=== PATIENT | female | born 1970 | race Caucasian/White ===

== ENCOUNTER 2016-11-09 17:00 | Emergency (ER) | payer OTHER ==
[2016-11-09 17:08] VITALS: BP 124/83
--- NOTE | 2016-11-09 17:33 | UC ---
Skin Complaint HPI - HPI Summary HPI Summary: Found small black speck on R thigh this evening after shower, thinks it is a tick. [place] and walked through some tall grass. About 1 week ago pulled large tick (does not think it was engorged) from the middle of her back; worried about the discolored spot. - History of Current Complaint Chief Complaint: [facility] Time Seen by Provider: 11/09/16 17:06 Stated Complaint: TICK Hx Obtained From: Patient Hx Last Menstrual Period: 1 WEEK AGO ?: No Onset/Duration: Sudden Onset Timing: Constant Onset Severity: Mild Current Severity: Mild Location: Discrete Aggravating: Nothing Alleviating: Nothing Associated Signs & Symptoms: Positive: Negative Related History: Insect Bite/Sting - Allergy/Home Medications Allergies/Adverse Reactions: Allergies Allergy/AdvReac Type Severity Reaction Status Date / Time PTU Allergy Severe Hives Uncoded 11/09/16 17:08 Home Medications: Home Medications Cyanocobalamin TAB* [Vitamin B12 TAB*] EVERY OTHER DAY 11/09/16 [History] Folic Acid TAB* [Folvite TAB*] 1 mg PO EVERY OTHER DAY 11/09/16 [History Confirmed 11/09/16] Levothyroxine TAB* [Synthroid TAB*] 100 mcg PO DAILY 11/09/16 [History Confirmed 11/09/16] Review of Systems Constitutional: Negative Skin: Other - spot on R thigh, itchy area on back Eyes: Negative ENT: Negative Respiratory: Negative Cardiovascular: Negative Gastrointestinal: Negative Genitourinary: Negative Motor: Negative Neurovascular: Negative Musculoskeletal: Negative Neurological: Negative Psychological: Negative All Other Systems Reviewed And Are Negative: Yes PMH/Surg Hx/FS Hx/Imm Hx Endocrine History: Thyroid Disease - Surgical History Surgical History: Yes Surgery Procedure, Year, and Place: THYROIDECTOMY 1999 - Family History Known Family History: Negative: Blood Disorder - Social History Lives: With Family Alcohol Use: None Substance Use Type: None Smoking Status (MU): Never Smoked Tobacco Physical Exam Triage Information Reviewed: Yes Appearance: Well-Appearing, No Pain Distress, Well-Nourished Vital Signs: Initial Vital Signs Temp 97.8 F 11/09/16 17:05 Pulse 53 11/09/16 17:05 Resp 16 11/09/16 17:05 BP 124/83 11/09/16 17:05 Pulse Ox 100 11/09/16 17:05 Vital Signs Reviewed: Yes Eye Exam: Normal Eyes: Positive: Conjunctiva Clear ENT Exam: Normal ENT: Positive: Normal ENT inspection, Hearing grossly normal, Pharynx normal, TMs normal Dental Exam: Normal Neck exam: Normal Neck: Positive: Supple, Nontender, No Lymphadenopathy Respiratory Exam: Normal Respiratory: Positive: Chest non-tender, Lungs clear, Normal breath sounds, No respiratory distress, No accessory muscle use Cardiovascular Exam: Normal Cardiovascular: Positive: RRR, No Murmur Musculoskeletal Exam: Normal Neurological Exam: Normal Neurological: Positive: Alert Psychological Exam: Normal Skin Exam: Other - tick bite site on back slightly raised, 2cm round area of post-inflammatory hyperpigmentation. No drainage or streaking. Skin: Positive: significant lesion(s) - spot on thigh pt is concerned about approx 1mm, oblong, no legs or other insect parts; when pulled off with forceps it revealed wound bed, consistent with scab Course/Dx - Diagnoses Provider Diagnoses: tick bite on back. scab on leg. elevated blood pressure due to anxiety Discharge - Discharge Plan Condition: Stable Disposition: HOME Patient Education Materials: Tick Bite (ED) Additional Instructions: THE SPOT ON YOUR LEG WAS NOT A TICK -- THAT WAS A SCAB AND DOES NOT NEED ANY SPECIAL ATTENTION. THE SPOT ON YOUR BACK LOOKS FAIRLY NORMAL, BUT KEEP WATCHING THE AREA TO MAKE SURE THE REDNESS DOES NOT GET BIGGER. RIGHT NOW IT IS 2cm IN DIAMETER. TICK BITE: You have been bitten by a tick. Once the tick is removed, these "bites" usually cause no problems. Tick fever, tick paralysis, W[place] Spotted fever, and Lyme disease are uncommon -- but you should mention this tick bite to your doctor if you develop unusual symptoms in the next several weeks. If you develop any of the following, please see your physician promptly: (1) Fever, chills, or generalized malaise associated with a headache. (2) A red round area at the site of the bite (or elsewhere) (3) Joint pain, joint swelling or generalized weakness. (4) Redness, swelling, or drainage at the site of the bite. Check yourself, your children and your pets for ticks whenever you've been in an area where ticks live. To remove a tick, grasp it firmly with some tweezers or a string in a slipknot as close to its head as possible and pull it steadily. Ticks do not have a typical "head" attached to their body. There are mouth parts sticking out which they use to feed. If there are mouth parts left behind in the wound there is NO increased risk of Lyme infection; however, the chances of a bacterial skin infection (cellulitis) are higher. If mouth parts remain after tick removal, the best thing to do is apply warm soaks to the area 3-4 times per day to encourage the skin to expel the foreign material. WHEN A TICK IS NOT ENGORGED AND HAS BEEN ON LESS THAN 24 HOURS - THE RISK FOR LYME IS NEGLIGIBLE. YOU CAN REMOVE THE TICK AND OBSERVE THE AREA ON YOUR OWN.
== END 2016-11-09 17:31 | disposition home or self-care (01) ==
LOC: UCEAST 17:00
DX: S70.361A Insect bite (nonvenomous), right thigh, initial encounter (principal); W57.XXXA Bitten or stung by nonvenomous insect and other nonvenomous arthropods, initial encounter; R23.4 Changes in skin texture; R03.0 Elevated blood-pressure reading, without diagnosis of hypertension; F41.9 Anxiety disorder, unspecified
CPT/HCPCS: 99211; G0463